=== PATIENT | male | born 1980 | race Two or more races ===

== ENCOUNTER 2019-07-06 15:48 | Emergency (ER) | payer OTHER ==
[~2019-07-06] VITALS: Ht 180.3 cm; Wt 113.4 kg
== END 2019-07-06 18:26 | disposition home or self-care (01) ==
LOC: ER 15:48
DX: S10.83XA Contusion of other specified part of neck, initial encounter (principal); S30.0XXA Contusion of lower back and pelvis, initial encounter; M54.5 Low back pain; M62.830 Muscle spasm of back; V49.88XA Car occupant (driver) (passenger) injured in other specified transport accidents, initial encounter; Y93.89 Activity, other specified; Y92.488 Other paved roadways as the place of occurrence of the external cause; Y99.8 Other external cause status